=== PATIENT | female | born 1970 | race Two or more races ===

== ENCOUNTER 2018-09-05 14:14 | Outpatient (CLI) | payer OTHER ==
[~2018-09-05 14:14] MED LIST: SYNTHROID88 MCG PO
== END 2018-09-05 15:00 | disposition home or self-care (01) ==
LOC: MAMO-SONO 14:14
DX: N60.11 Diffuse cystic mastopathy of right breast (principal); N60.12 Diffuse cystic mastopathy of left breast; Z12.31 Encounter for screening mammogram for malignant neoplasm of breast